=== PATIENT | female | born 1995 | race Caucasian/White ===

== ENCOUNTER 2017-03-23 16:58 | Outpatient (CLI) | payer OTHER, MEDICAID ==
[2017-03-23] MEDS ORDERED: RINGERS SOLUTION,LACTATED 1,000 ML IV ONE (17:10)
[2017-03-23 17:27] LABS: APPEARANCE,URINE SLIGHTLY-CLOUDY; BILIRUBIN,URINE NEGATIVE (NEGATIVE); GLUCOSE, URINE NEGATIVE (NEGATIVE); KETONES,URINE NEGATIVE (NEGATIVE); LEUKOCYTE ESTERASE,URINE NEGATIVE (NEGATIVE); NITRITE,URINE NEGATIVE (NEGATIVE); PROTEIN,URINE NEGATIVE (NEGATIVE); URINE SPECIFIC GRAVITY 1.003; UROBILINOGEN,URINE NEGATIVE mg/dL (<2.0)
[2017-03-23 17:45] LABS: URINE BARBITURATES SCREEN NEGATIVE; URINE METHADONE SCREEN NEGATIVE; URINE OPIATES LOW NEGATIVE; URINE PHENCYCLIDINE SCREEN NEGATIVE
== END 2017-03-23 17:59 | disposition home or self-care (01) ==
LOC: LC 16:58
PROVIDERS: ATTEND Obstetrics & Gynecology
DX: O26.893 Other specified pregnancy related conditions, third trimester (principal); E86.0 Dehydration; Z3A.29 29 weeks gestation of pregnancy
CPT/HCPCS: 80307; 81001

== ENCOUNTER 2017-05-11 05:01 | Outpatient (CLI) | payer OTHER, MEDICAID ==
[2017-05-11] MEDS ORDERED: ONDANSETRON 4 MG TAB.RAPDIS PO ONE (05:44)
[2017-05-11] MEDS ORDERED: ACETAMINOPHEN 325 MG TABLET PO ONE (05:44)
[2017-05-11 05:46] LABS: APPEARANCE,URINE SLIGHTLY-CLOUDY; BILIRUBIN,URINE NEGATIVE (NEGATIVE); GLUCOSE, URINE NEGATIVE (NEGATIVE); KETONES,URINE NEGATIVE (NEGATIVE); LEUKOCYTE ESTERASE,URINE NEGATIVE (NEGATIVE); NITRITE,URINE NEGATIVE (NEGATIVE); PROTEIN,URINE NEGATIVE (NEGATIVE); URINE SPECIFIC GRAVITY 1.005; UROBILINOGEN,URINE NEGATIVE mg/dL (<2.0)
[2017-05-11] MEDS ORDERED: ACETAMINOPHEN 325 MG TABLET ONE (05:48)
[2017-05-11] MEDS ORDERED: ONDANSETRON 4 MG TAB.RAPDIS ONE (05:48)
[2017-05-11 06:14] LABS: URINE BARBITURATES SCREEN NEGATIVE; URINE METHADONE SCREEN NEGATIVE; URINE OPIATES LOW NEGATIVE; URINE PHENCYCLIDINE SCREEN NEGATIVE
== END 2017-05-11 06:21 | disposition home or self-care (01) ==
LOC: LC 05:01
PROVIDERS: ATTEND Student in an Organized Health Care Education/Training Program
PROC: 4A1HXCZ Monitoring of Products of Conception, Cardiac Rate, External Approach (ICD-10-PCS; principal; 2017-05-11)
DX: O26.893 Other specified pregnancy related conditions, third trimester (principal); R10.9 Unspecified abdominal pain; R11.2 Nausea with vomiting, unspecified; Z3A.35 35 weeks gestation of pregnancy
CPT/HCPCS: 59025; 81005; 80307; S0119